=== PATIENT | male | born 1995 | race African-American/Black ===

== ENCOUNTER 2024-08-06 12:47 | Emergency (ER) | payer MEDICAID ==
[~2024-08-06] VITALS: Ht 177.8 cm; Wt 88.5 kg
[2024-08-06 13:01] VITALS: BP 147/81; TEMP 98.3; O2SAT 97
== END 2024-08-06 15:16 | disposition home or self-care (01) ==
LOC: ER 12:54
DX: R07.89 Other chest pain (principal); F12.90 Cannabis use, unspecified, uncomplicated
CPT/HCPCS: 71111-TC